=== PATIENT | female | born 1960 | race Caucasian/White ===

== ENCOUNTER 2017-07-01 07:15 | Day surgery (SDC) | payer BC, MEDICAID ==
[2017-07-01 08:08] LABS: ADD MAN DIFF? NO
[2017-07-01 08:10] LABS: BASOPHILS % 0.6 % (0.0-2.0); EOSINOPHILS # 0.3 10^3/ul (0.0-0.5); EOSINOPHILS % 4.8 % (0.0-7.0); HEMATOCRIT 35.4 % (37.0-47.0); LYMPHOCYTES # 1.1 10^3/ul (0.8-2.9); LYMPHOCYTES % 21.7 % (15.0-51.0); MEAN CORPUSCULAR HEMOGLOBIN 28.8 pg (29.0-33.0); MEAN CORPUSCULAR HGB CONC 33.9 g/dl (32.0-37.0); MEAN CORPUSCULAR VOLUME 84.9 fl (82.0-101.0); MONOCYTE # 0.4 10^3/ul (0.3-0.9); MONOCYTES % 7.4 % (0.0-11.0); NEUTROPHIL # 3.4 10^3/ul (1.6-7.5); NEUTROPHILS % 65.1 % (39.0-77.0); PLATELET COUNT 257 10^3/UL (140-415); RED BLOOD COUNT 4.17 10^6/ul (4.20-5.40); RED CELL DISTRIBUTION WIDTH 13.3 % (11.5-14.5)
[2017-07-01 08:10] LABS: WHITE BLOOD COUNT 5.2 10^3/ul (4.8-10.8)
[2017-07-01 08:44] LABS: ALANINE AMINOTRANSFERASE 40 IU/L (13-69); ALBUMIN 4.4 g/dl (3.3-4.9); ALBUMIN/GLOBULIN RATIO 1.51; ALKALINE PHOSPHATASE 68 IU/L (42-121); ANION GAP 17 (8-16); ASPARTATE AMINO TRANSFERASE 21 IU/L (15-46); BILIRUBIN,INDIRECT 0.1 mg/dl (0-1.1); BILIRUBIN,TOTAL 0.1 mg/dl (0.2-1.3); CARBON DIOXIDE 24 mmol/L (21-31); CHLORIDE 107 mmol/L (97-110); GLUCOSE 205 mg/dl (70-220); TOTAL PROTEIN 7.3 g/dl (6.1-8.1)
[2017-07-01 08:58] LABS: CALCIUM 9.5 mg/dl (8.4-10.2); CREATININE 1.18 mg/dl (0.44-1.00); POTASSIUM 4.7 mmol/L (3.5-5.1); SODIUM 143 mmol/L (135-144)
[2017-07-01 09:01] LABS: BLOOD UREA NITROGEN 26 mg/dl (7-20)
[2017-07-01 09:23] LABS: INR 0.91; PARTIAL THROMBOPLASTIN TIME 29.7 Sec (25.0-35.0); PROTIME 12.3 Sec (11.9-14.9)
[2017-07-01] MEDS ORDERED: PROPOFOL 20 ML (10:06)
[2017-07-01] MEDS ORDERED: ONDANSETRON 4 MG INJ (10:06)
[2017-07-01] MEDS ORDERED: METOCLOPRAMIDE 10 MG INJ (10:06)
[2017-07-01] MEDS ORDERED: MIDAZOLAM 1 MG/ML 2 ML INJ (10:06)
[2017-07-01] MEDS ORDERED: FENTAnyl 50 MCG/ML VIAL (10:12)
[2017-07-01] MEDS: SODIUM CHLORIDE 0.9% 1L IRRIG IRR (10:19)
[2017-07-01] MEDS ORDERED: DIPHENHYDRAMINE 50 MG INJ IV (10:30)
[2017-07-01] MEDS ORDERED: HYDROmorphONE (0.2 MG/ML) 10ML SYG IV ×2 (10:30)
[2017-07-01] MEDS ORDERED: OXYCODONE/ACETAMINOPHEN (5/325) TAB PO ×2 (10:30)
[2017-07-01] MEDS ORDERED: ONDANSETRON 4 MG INJ IV (10:30)
[2017-07-01] MEDS ORDERED: MEPERIDINE 25 MG INJ IV (10:30)
[2017-07-01] MEDS: HYDROmorphONE (0.2 MG/ML) 10ML SYG IV (11:14)
== END 2017-07-01 13:40 | disposition home or self-care (01) ==
LOC: SDS 07:15
DX: N84.0 Polyp of corpus uteri (principal); E11.9 Type 2 diabetes mellitus without complications; E78.5 Hyperlipidemia, unspecified; I10 Essential (primary) hypertension
CPT/HCPCS: 58120; 71045; 80053; 82962; 85025; 85610; 85730; 88305; 93005